=== PATIENT | female | born 1985 | race Caucasian/White ===

== ENCOUNTER 2019-10-24 12:56 | Emergency (ER) | payer SELFPAY ==
[2019-10-24 13:35] LABS: Pregnancy Test - Urine (BHCG) Negative (Negative); Pregu Control Background? CLEAR/WHITE (CLR/WHITE); Pregu Control Bar Appear? YES (CONTROL BAR)
[2019-10-24 13:37] LABS: Bilirubin Negative (Negative); Blood, Urine Small (Negative); Clarity Clear (Clear); Glucose, Urine (Dipstick) Negative (Negative); Ketone, Urine Negative (Negative); Leukocyte Trace (Negative); Nitrite Negative (Negative); Protein, Urine (Dipstick) Negative (Neg-Trace); Urobilinogen 0.2 mg/dL (Less than 2)
[2019-10-24 13:39] LABS: Bacteria/HPF Rare-Few HPF (None Seen); RBC/HPF 0-3 HPF (0-3); WBC/HPF 0-3 HPF (0-3)
[2019-10-24 14:26] LABS: #Basophils 0.1 thou/uL (0.0-0.2); #Eosinphils 0.5 thou/uL (0.0-0.7); #Lymphocytes 2.3 thou/uL (1.20-3.40); #Monocytes 0.4 thou/uL (0.11-0.59); #Neutrophils 3.3 thou/uL (1.40-6.50); %Basophils 1.6 % (0.0-1.0); %Eosinophils 7.5 % (0.0-10.0); %Lymphocytes 35.2 % (21.0-51.0); %Monocytes 6.1 % (0.0-10.0); %Neutrophils 49.5 % (42.0-75.0); Hemoglobin 14.2 g/dL (12.0-16.0); Mean Corpuscular HGB CONC 31.3 g/dL (32.0-36.0); Mean Corpuscular Hemoglobin 28.1 pg (27.0-31.0); Mean Corpuscular Volume 89.6 fL (78.0-98.0); Mean Platelet Volume 6.3 fL (7.4-10.4); Platelet Count 326 thou/uL (130-400); RBC Distribution Width 11.8 % (11.5-14.5); Red Blood Cell (RBC) Count 5.06 mill/uL (4.20-5.40); White Blood Cell (WBC) Count 6.6 thou/uL (4.8-10.8)
[2019-10-24 14:37] LABS: Anion Gap 12 mmol/L (10-20); BUN (Urea Nitrogen) 9 mg/dL (7.0-18.7); Calc. Creatinine Clearance 0 mL/min (70-130); Calcium 8.7 mg/dL (7.8-10.44); Carbon Dioxide 24 mmol/L (22-29); Chloride 106 mmol/L (98-107); Glucose 97 mg/dL (70-105); Potassium 4.1 mmol/L (3.5-5.1); Sodium 138 mmol/L (136-145)
--- NOTE | 2019-10-24 14:39 | CT ---
CT ABDOMEN AND PELVIS: 10/24/19 HISTORY: Right flank pain for three days. Decreased urine output. COMPARISON: None. FINDINGS: Lack of intravenous contrast limits sensitivity for evaluation of the vascular structures and parench ymal organs. The lung bases are clear. Post cholecystectomy changes are noted. No renal or ureteral calculi are seen bilaterally, and there is no evidence of hydronephrosis. Small extrarenal pelves are seen bilaterally. A small subcentimeter too small to characterize hypodense lesion is seen near the hepatic dome anteri tina which is too small to further characterize. The spleen, pancreas, bilateral adrenal gland and kidneys demonstrate a normal CT appearance. Urinary bladder is distended and has a normal nonenhanced CT appearance. The uterus and adnexal struc tures demonstrate a normal nonenhanced CT appearance. The loops of small bowel are normal in caliber. The appendix is visualized and normal in caliber. No free fluid, fluid collection, or lymphadenopathy is seen on this nonenhanced CT scan of the abdome n and pelvis. No suspicious lytic or sclerotic osseous lesions are identified. IMPRESSION: 1. No renal or ureteral calculi are seen bilaterally. 2. No CT evidence of appendicitis. 3. Subcentimeter too small to characterize hypodense lesions in the liver. 4. Post cholecystectomy changes. POS: [facility]
[2019-10-24] MEDS ORDERED: Ketorolac Tromethamine 60 MG/2 ML VIAL ONE (15:07)
== END 2019-10-24 15:36 | disposition home or self-care (01) ==
LOC: MADERS 12:56
DX: R10.2 Pelvic and perineal pain (principal); R10.813 Right lower quadrant abdominal tenderness; M54.5 Low back pain; J45.909 Unspecified asthma, uncomplicated; F17.210 Nicotine dependence, cigarettes, uncomplicated
CPT/HCPCS: 36415; 74176; 80048; 81003; 81015; 81025; 85025; 96372; 99284; J1885